=== PATIENT | male | born 1940 | race Caucasian/White ===

== ENCOUNTER 2017-12-13 09:37 | Emergency (ER) | payer OTHER, BC ==
[~2017-12-13] VITALS: Ht 172.7 cm; Wt 73.5 kg
[2017-12-13 09:43] VITALS: BP 105/43
--- NOTE | 2017-12-13 09:45 | NUR ---
PATIENT ALEXI FROM [facility] FOR EVALUATION OF PAIN TO DIALYSIS SHUNT SITE; PT DID NOT RECEIVE DIALYSIS TODAY D/T PT C/O PAIN AND ERYTHEMA AROUND THE SITE. HX: DIALYSIS M/W/F; ESRD, DEMENTIA, BPH, HTN, CVA, ANEMIA . AAOX2, UNABLE TO AMBULATE, RIGHT SIDE SEVERE WEAKNESS NOTED, WHEELCHAIR MCCOY; LUNGS CLEAR BL; HR EVEN AND REGULAR; PT DENIES ANY FEVER, CP, SOB, OR COUGH AT THIS TIME; ENIES N/V/D; SKIN IS PINK/WARM/DRY; PATIENT STATES PAIN OF 8/10 AT THIS TIME; VSS; PATIENT POSITIONED FOR COMFORT; HOB ELEVATED; BEDRAILS UP X2; BED DOWN. ER MD MADE AWARE OF PT STATUS.
[2017-12-13] MEDS ORDERED: CITA20TA15 PO (09:53)
[2017-12-13] MEDS ORDERED: PRO5 PO (09:53)
[2017-12-13] MEDS ORDERED: ASPI81CT89 PO (09:53)
[2017-12-13] MEDS ORDERED: PANT40EC PO (09:53)
[2017-12-13] MEDS ORDERED: [UNRECOGNIZED DRUG - CODE] PO (09:53)
[2017-12-13] MEDS ORDERED: KEP500 PO (09:53)
[2017-12-13] MEDS ORDERED: CARB1TAB37 PO (09:53)
[2017-12-13] MEDS ORDERED: ATOR10TA PO (09:53)
[2017-12-13] MEDS ORDERED: FERR325E14 PO (09:53)
[2017-12-13] MEDS ORDERED: OLAN2.5T1 PO (09:53)
[2017-12-13] MEDS ORDERED: MIRT15TA PO (09:53)
[2017-12-13] MEDS ORDERED: FINA5TAB1 PO (09:53)
--- NOTE | 2017-12-13 10:17 | NUR ---
PT EVALUATED BY ED MD AT BEDSIDE.
[2017-12-13] MEDS: DEXAMETHASONE 10 MG/ML VIAL IM ONE (10:45)
[2017-12-13] MEDS: ONDANSETRON 4 MG ODT PO ONE (10:45)
[2017-12-13] MEDS: hydrOXYzine HCL 25 MG TAB PO ONE (10:45)
--- NOTE | 2017-12-13 15:00 | NUR ---
TRANSPORT FOR PT TO SNF HAS ARRIVED
[2017-12-13 15:15] VITALS: BP 102/56
--- NOTE | 2017-12-13 15:15 | NUR ---
Patient discharged with v/s stable. Written and verbal after care instructions given and explained. Patient alert, oriented and verbalized understanding of instructions. Ambulance Transport with to detention. All questions addressed prior to discharge. ID band removed. Patient advised to follow up with PMD. Rx of ATARAX AND PREDNISONE given. Patient educated on indication of medication including possible reaction and side effects. Opportunity to ask questions provided and answered.
== END 2017-12-13 15:15 ==
LOC: MED 09:37
DX: L25.9 Unspecified contact dermatitis, unspecified cause (principal); F03.90 Unspecified dementia, unspecified severity, without behavioral disturbance, psychotic disturbance, mood disturbance, and anxiety; K21.9 Gastro-esophageal reflux disease without esophagitis; I10 Essential (primary) hypertension; Z79.899 Other long term (current) drug therapy
CPT/HCPCS: 96372; 99283; J1100; S0119

== ENCOUNTER 2019-08-14 14:01 | Emergency (ER) | payer OTHER, BC ==
[~2019-08-14] VITALS: Ht 177.8 cm; Wt 75.7 kg
[~2019-08-14 14:01] MED LIST: ASPI-1718 PO; ATOR10TA PO; CARB1TAB37 PO; CITA20TA15 PO; FERR325E14 PO; FINA5TAB1 PO; KEP500 PO; MIRT15TA PO; OLAN2.5T1 PO; PANT40EC PO; PRO5 PO; [UNRECOGNIZED DRUG - CODE] PO
--- NOTE | 2019-08-14 14:01 | NUR ---
PT ALEXI ALS AND PLACED IN BED 4.
--- NOTE | 2019-08-14 14:06 | NUR ---
Patient being evaluated by physician at bedside.
[2019-08-14 14:13] VITALS: BP 124/70
--- NOTE | 2019-08-14 14:24 | NUR ---
ALEXI REYESS. PER EMS, PT WAS HYPOTENSIVE DURING DIALYSIS- 72/42. DIALYSIS CENTER GAVE 1 L FLUIDS. PT CURRENTLY 124/70. BS 109 IN FIELD. 12 LEAD IN FIELD SHOWS NO ABNORMAL FINDINGS. PT IS ALERT TO SELF (PTS BASELINE). SITTING UPRIGHT IN BED, AWAKE. VSS. ON ROOM AIR. BED IS DOWN, LOCKED, BED RAIL X 2. PMH- SEE MED LIST
--- NOTE | 2019-08-14 14:44 | NUR ---
KEYLA AT BEDSIDE FOR EKG
--- NOTE | 2019-08-14 15:25 | NUR ---
PT RESTING IN BED. VSS.
[2019-08-14 15:38] LABS: BASOPHILS # (AUTO) 0.1 K/uL (0.00-0.22); BASOPHILS % (AUTO) 0.6 % (0.0-2.0); EOSINOPHILS # (AUTO) 0.2 K/uL (0-0.4); EOSINOPHILS % (AUTO) 2.1 % (0.0-4.0); HEMATOCRIT 36.7 % (36-52); HEMOGLOBIN 11.8 g/dL (12.0-18.0); LYMPHOCYTES # (AUTO) 0.8 K/uL (2.0-11.5); MEAN CORPUSCULAR HEMOGLOBIN 32 pg (27-31); MEAN CORPUSCULAR HGB CONC 32 g/dL (33-37); MEAN CORPUSCULAR VOLUME 98.5 fL (80-94); MONOCYTES # (AUTO) 0.6 K/uL (0.8-1.0); MONOCYTES % (AUTO) 6.8 % (1.7-9.3); NEUTROPHILS # (AUTO) 6.6 K/uL (1.8-7.7); NEUTROPHILS % (AUTO) 80.5 % (42.2-75.2); PLATELET COUNT (AUTO) 242 K/uL (140-450); RED BLOOD CELL COUNT(AUTO) 3.72 MIL/uL (4.20-6.10); RED CELL DISTRIBUTION WIDTH 15.8 % (11.6-13.7); WHITE BLOOD COUNT (AUTO) 8.2 K/uL (4.8-10.8)
[2019-08-14 15:52] LABS: ANION GAP 14.8 (8-16); CARBON DIOXIDE 23.4 mmol/L (21-32); CHLORIDE 104 mmol/L (98-107); GLUCOSE 127 mg/dL (74-106); POTASSIUM 5.2 mmol/L (3.5-5.1); SODIUM SERUM 137 mmol/L (136-145)
--- NOTE | 2019-08-14 15:53 | NUR ---
BUN 66 CR 5.[address] NEWMAN
[2019-08-14 15:55] LABS: CREATININE 5.6 mg/dL (0.7-1.3); UREA NITROGEN, BLOOD 66 mg/dL (7-18)
--- NOTE | 2019-08-14 16:28 | NUR ---
PT SITTING UPRIGHT IN BED EATING
--- NOTE | 2019-08-14 16:44 | NUR ---
[facility] IS 30-40 MIN FOR TRANSPORT TEAM
--- NOTE | 2019-08-14 17:21 | NUR ---
PT HAS FINISHED EATING. RESTING IN BED AND POSTIONED FOR COMFORT.
--- NOTE | 2019-08-14 17:53 | NUR ---
CALLED TRANSPORT TEAM AND CAN NOT GET A HOLD OF THEM. NO ARRIVAL AT THIS TIME
--- NOTE | 2019-08-14 17:55 | NUR ---
CALLED [facility] (POWER OF NEIGHBORHOOD CONSERVATION OFFICER), FOR AN UPDATE REGARDING PTS TRANSPORT STATUS. NO ANSWER AND MAILBOX IS FULL, NO MESSAGE LEFT
[2019-08-14 18:20] VITALS: BP 115/82
--- NOTE | 2019-08-14 18:20 | NUR ---
Patient discharged with v/s stable. Written and verbal after care instructions given and explained. Patient verbalized understanding. Wheel Chair Assisted by transport team. All questions addressed prior to discharge. Advised to follow up with PMD.
== END 2019-08-14 18:20 | disposition home or self-care (01) ==
LOC: MED 14:01
DX: I95.9 Hypotension, unspecified (principal); R55 Syncope and collapse; I12.0 Hypertensive chronic kidney disease with stage 5 chronic kidney disease or end stage renal disease; N18.6 End stage renal disease; F03.90 Unspecified dementia, unspecified severity, without behavioral disturbance, psychotic disturbance, mood disturbance, and anxiety; K21.9 Gastro-esophageal reflux disease without esophagitis; Z79.82 Long term (current) use of aspirin; Z79.899 Other long term (current) drug therapy; Z99.2 Dependence on renal dialysis
CPT/HCPCS: 36415; 80048; 84484; 85025; 93005; 99284

== ENCOUNTER 2022-11-29 09:12 | Inpatient (IN) | payer OTHER, BC ==
[~2022-11-29] VITALS: Ht 172.7 cm; Wt 54.4 kg
[~2022-11-29 09:12] MED LIST changes: -ASPI-1718 PO; +ASPI-1822 PO; +DEXA6TAB1 PO; +DONE5TAB6 PO; +MIRT-91 PO; -MIRT15TA PO; +PANT40EC56 PO; +SEVE800T6 PO; +TAMS0.4C96 PO; +VITA1TAB44 PO; +VITC500 PO; +ZINC220C29 PO
[2022-11-29 09:17] VITALS: BP 144/86
--- NOTE | 2022-11-29 09:31 | NUR ---
COVID SWABBED AT THIS TIME
--- NOTE | 2022-11-29 09:33 | NUR ---
RECIEVED REPORT FROM TONI ([facility]) [phone] COVID VACC: PFIZER MENTAL STATUS: HX DEMENTIA, CONFUSED BASELINE PMH: DEMENTIA, STROKE RIGHT SIDED DEFICIT, HTN, RENAL DISEASE, HLD
--- NOTE | 2022-11-29 09:41 | NUR ---
82 y/o male biba from [facility], pt had syncopal episode during dialysis and ALOC, pt did not finish dialysis, 65L output, 1L fluids given at dialysis center. 80% RA at dialysis center. per nurse at facility, pt normal baseline is alert and sometimes verbal, but sometimes speech is incomprehensive. pt currently at baseline as described by caregiver. pt on 10L NRB with saturation 100%. right sided chest port for dialysis. pmh: stroke right sided deficit, renal disease (tues, thurs, sat), dementia, htn, hld nka med: see list
--- NOTE | 2022-11-29 09:50 | NUR ---
influenza swabbed at this time
--- NOTE | 2022-11-29 10:04 | NUR ---
X-Ray at bedside.
[2022-11-29 10:43] LABS: BASOPHILS # (AUTO) 0.1 K/uL (0.00-0.22); BASOPHILS % (AUTO) 0.9 % (0.0-2.0); EOSINOPHILS # (AUTO) 0.2 K/uL (0-0.4); EOSINOPHILS % (AUTO) 2.1 % (0.0-4.0); HEMATOCRIT 30.2 % (36-52); HEMOGLOBIN 10.5 g/dL (12.0-18.0); LYMPHOCYTES # (AUTO) 0.8 K/uL (2.0-11.5); LYMPHOCYTES % (AUTO) 10.5 % (20.5-51.1); MEAN CORPUSCULAR HEMOGLOBIN 34 pg (27-31); MEAN CORPUSCULAR HGB CONC 35 g/dL (33-37); MEAN CORPUSCULAR VOLUME 95.8 fL (80-94); MONOCYTES # (AUTO) 0.4 K/uL (0.8-1.0); MONOCYTES % (AUTO) 5.5 % (1.7-9.3); NEUTROPHILS # (AUTO) 6.3 K/uL (1.8-7.7); PLATELET COUNT (AUTO) 199 K/uL (140-450); RED BLOOD CELL COUNT(AUTO) 3.15 MIL/uL (4.20-6.10); RED CELL DISTRIBUTION WIDTH 13.7 % (11.6-13.7); WHITE BLOOD COUNT (AUTO) 7.8 K/uL (4.8-10.8)
[2022-11-29 10:58] LABS: ALBUMIN 3.3 g/dL (3.4-5.0); ANION GAP 12.4 (8-16); ASPARTATE AMINOTRANSFERASE 11 U/L (15-37); CARBON DIOXIDE 27.3 mmol/L (21-32); CHLORIDE 99 mmol/L (98-107); GLUCOSE 136 mg/dL (74-106); POTASSIUM 4.7 mmol/L (3.5-5.1); SODIUM SERUM 134 mmol/L (136-145); TOTAL BILIRUBIN 0.2 mg/dL (0.0-1.0); UREA NITROGEN, BLOOD 39 mg/dL (7-18)
[2022-11-29 11:00] LABS: CREATININE 4.8 mg/dL (0.6-1.3)
[2022-11-29 11:03] LABS: PROTHROMBIN TIME 11.1 secs (10.8-13.4)
[2022-11-29] MEDS ORDERED: PRO5 PO (12:24)
[2022-11-29] MEDS ORDERED: METO25TE2 PO (12:24)
[2022-11-29] MEDS ORDERED: ACETAMINOPHEN 325 MG TAB PO PRN (13:25)
[2022-11-29] MEDS ORDERED: HYDROcodone/APAP 7.5/325 MG 1 TAB PO PRN (13:25)
[2022-11-29] MEDS ORDERED: ONDANSETRON 4 MG/2 ML VIAL IVP PRN (13:25)
--- NOTE | 2022-11-29 13:26 | NUR ---
Patient will be admitted to care of [facility]. Admitted to Telemetry. Will go to room 113. Belongings list completed. Report to Huong KEARNEY.
[2022-11-29] MEDS ORDERED: MECLIZINE 25 MG TAB PO PRN (13:35)
--- NOTE | 2022-11-29 13:40 | NUR ---
Pt report given to Huong KEARNEY. Transfer of care at this time.
[2022-11-29 16:00] VITALS: BP 152/94
--- NOTE | 2022-11-29 16:21 | NUR ---
PATIENT HAS BEEN SCREENED AND CATEGORIZED MODERATE NUTRITION RISK. PATIENT WILL BE SEEN WITHIN 3-5 DAYS OF ADMISSION. REVIEWED BY ROD BRADLEY RD
[2022-11-29 17:41] LABS: PROTHROMBIN TIME 10.4 secs (10.8-13.4)
[2022-11-29 17:53] LABS: CHOL/HDL RATIO 1.5 (1-4.5); FREE T4 (FREE THYROXINE) 1.16 ng/dL (0.76-1.46); THYROID STIMULATING HORMONE 2.38 uIU/mL (0.34-3.74)
[2022-11-29] MEDS: SEVELAMER CARBONATE 800 MG TAB PO SCH (18:19)
--- NOTE | 2022-11-29 18:40 | NUR ---
PATIENT ADMITTED FROM ER AT 1500. PT IS A&O X1, LIVES IN [facility]. SPOKE WITH EMELY FROM FACILITY ([phone]) - STATES PT HAS POLST AND IS DNR SO REQUESTED TO BE SENT TOMORROW, PT REMAINS FULL CODE. VSS, SKIN INTACT BESIDES SMALL SCABBING SKIN TEARS ON EXTREMITIES. PT HAD LARGE BM AND SMALL URINE VOID. MRSA SENT AND AWAITING VOID FOR URINE SAMPLE. THERAPY SAW PT AT BEDSIDE BUT JUST ROM. CALL GARCIA IS WITHIN REACH, FALL PRECAUTIONS INITIATED. ENDORSING CARE TO NEXT SHIFT RN.
--- NOTE | 2022-11-29 19:05 | NUR ---
RECEIVED PATIENT LYING ON THE BED, AWAKE, ALERT, ORIENTED TO PERSON ONLY. PATIENT HAS RIGHT UPPER CHEST PERMACATH. IV SITE ON LEFT FOREARM, G20, SALINE LOCK. SEIZURE PRECAUTIONS IN PLACE, CALL LIGHT WITHIN REACH, BED IN LOW AND LOCKED POSITION.
[2022-11-29 20:00] VITALS: BP 141/95
[2022-11-29] MEDS ORDERED: DOCUSATE SODIUM 250 MG GELCAP PO SCH (21:00)
[2022-11-29] MEDS: ATORVASTATIN 20 MG TAB PO SCH (21:07)
[2022-11-29] MEDS: TAMSULOSIN 0.4 MG CAP PO SCH (21:08)
[2022-11-29] MEDS: DOCUSATE SODIUM 100 MG GELCAP PO SCH (21:08)
[2022-11-29] MEDS: FERROUS SULFATE 325 MG TABEC PO SCH (21:08)
[2022-11-29] MEDS: OLANZapine 2.5 MG TAB PO SCH (21:09)
[2022-11-29] MEDS: MIRTAZAPINE 15 MG TAB PO SCH (21:09)
--- NOTE | 2022-11-29 21:15 | NUR ---
SCHEDULED MEDICATIONS GIVEN ORDERED.
--- NOTE | 2022-11-29 22:50 | NUR ---
BEDSIDE CARE DONE, PATIENT HAS LARGE SOFT BM. SKIN CHECK DONE, PATIENT HAS SCABS ON BILATERAL LOWER EXTREMITIES. WILL CONTINUE TO MONITOR THE PATIENT.
[2022-11-30] VITALS: BP 152/94
--- NOTE | 2022-11-30 03:00 | NUR ---
URINE COLLECTED FOR URINE CULTURE, SENT TO LAB.
[2022-11-30 04:00] VITALS: BP 105/81
[2022-11-30] MEDS: PANTOPRAZOLE 40 MG TABEC PO SCH (05:33)
[2022-11-30 07:10] LABS: BASOPHILS # (AUTO) 0.1 K/uL (0.00-0.22); BASOPHILS % (AUTO) 1.8 % (0.0-2.0); EOSINOPHILS # (AUTO) 0.2 K/uL (0-0.4); EOSINOPHILS % (AUTO) 2.9 % (0.0-4.0); HEMATOCRIT 32.9 % (36-52); HEMOGLOBIN 11.1 g/dL (12.0-18.0); LYMPHOCYTES # (AUTO) 0.8 K/uL (2.0-11.5); LYMPHOCYTES % (AUTO) 15.6 % (20.5-51.1); MEAN CORPUSCULAR HEMOGLOBIN 33 pg (27-31); MEAN CORPUSCULAR HGB CONC 34 g/dL (33-37); MEAN CORPUSCULAR VOLUME 98.1 fL (80-94); MONOCYTES # (AUTO) 0.5 K/uL (0.8-1.0); MONOCYTES % (AUTO) 9.3 % (1.7-9.3); NEUTROPHILS # (AUTO) 3.8 K/uL (1.8-7.7); NEUTROPHILS % (AUTO) 70.4 % (42.2-75.2); PLATELET COUNT (AUTO) 213 K/uL (140-450); RED BLOOD CELL COUNT(AUTO) 3.35 MIL/uL (4.20-6.10); RED CELL DISTRIBUTION WIDTH 13.7 % (11.6-13.7); WHITE BLOOD COUNT (AUTO) 5.4 K/uL (4.8-10.8)
--- NOTE | 2022-11-30 07:10 | NUR ---
ENDORSED PATIENT TO NURSE CHESTER FOR CONTINUITY OF CARE. NEEDS MET THROUGHOUT THE SHIFT. PATIENT IN STABLE CONDITION.
[2022-11-30 07:20] LABS: ANION GAP 13.4 (8-16); CARBON DIOXIDE 27.7 mmol/L (21-32); CHLORIDE 98 mmol/L (98-107); GLUCOSE 97 mg/dL (74-106); POTASSIUM 5.1 mmol/L (3.5-5.1); SODIUM SERUM 134 mmol/L (136-145); UREA NITROGEN, BLOOD 43 mg/dL (7-18)
[2022-11-30 07:36] LABS: MAGNESIUM 2.1 mg/dL (1.8-2.4); PHOSPHORUS 4.1 mg/dL (2.5-4.9)
[2022-11-30 08:00] VITALS: BP 135/95
[2022-11-30 08:23] LABS: CREATININE 5.9 mg/dL (0.6-1.3)
[2022-11-30] MEDS ORDERED: PANTOPRAZOLE 40 MG INJ VIAL IVP SCH (09:00)
[2022-11-30] MEDS: DOCUSATE SODIUM 100 MG GELCAP PO SCH ×2 (09:13→21:18)
[2022-11-30] MEDS: FINASTERIDE 5 MG TAB PO SCH (09:14)
[2022-11-30] MEDS: CITALOPRAM 20 MG TAB PO SCH (09:14)
[2022-11-30] MEDS: ASPIRIN 81 MG TAB.CHEW PO SCH (09:15)
[2022-11-30] MEDS: SEVELAMER CARBONATE 800 MG TAB PO SCH ×3 (09:15→17:20)
[2022-11-30] MEDS: DONEPEZIL 10 MG TAB PO SCH (09:15)
[2022-11-30] MEDS: METOPROLOL SUCCINATE 50 MG TABER PO SCH (09:16)
[2022-11-30] MEDS: VIT-B COMP/VIT-C/FOLIC ACID 1 TAB PO SCH (09:16)
[2022-11-30] MEDS: FERROUS SULFATE 325 MG TABEC PO SCH ×2 (09:17→21:19)
[2022-11-30] MEDS: TAMSULOSIN 0.4 MG CAP PO SCH ×2 (09:17→21:20)
[2022-11-30 12:00] VITALS: BP 151/97
[2022-11-30] MEDS ORDERED: bisacodyL 10 MG SUPP RC SCH (14:00)
--- NOTE | 2022-11-30 15:21 | NUR ---
VSS, PT BP ELEVATED TO 151 SYSTOLIC AT NOON, BUT HAS ORDER FOR HD TOMORROW. WILL CONTINUE TO MONITOR. NO CALL BACK FROM DIALYSIS COUNTERINTELLIGENCE AGENT SHANELL DALY. FALL PRECAUTIONS IN PLACE AND Q2 TURNS PERFORMED.
[2022-11-30 16:00] VITALS: BP 188/99
--- NOTE | 2022-11-30 16:16 | NUR ---
DC PLANNING PER NOTES, PT A&OX1 THEREFORE, SHANELLE GATHERED COLLAT INFO FROM TONI, [employer] ADMIN. [facility]ONI REPORTS PATIENT IS RESIDENT OF [facility] FOR THE LAST 8-9 YRS. TONI IDENTIFIED BRENDAN LEDESMA, EX PARTNER [phone] AND TONI NAVARRETE,ADMIN,[phone] PTS EMERGENCY CONTACTS. TONI REPORTS SHE AND/OR BRENDAN ARE MDM. PT IS REPORTED TO HAVE FAMILY IN [place] HOWEVER, ARE NOT ACTIVE IN PTS CARE. TONI REPORTS PT IS COMPLIANT IN CARE AND DOES NOT DISPLAY ANY BX'S AT THE HOME. PT IS REPORTED TO UTILIZE WC AT FACILITY AND REQUIRES ASSISTANCE WITH ADL'S, THAT STAFF AIDS WITH. PT RECEIVES DIALYSIS FROM [facility] AT 8AM ON AT 8AM. PTS FOLLOWING NEPH; DR MINGO JUAREZ. TONI REPORTS DC PLAN IS FOR PT TO RETURN TO [facility] WHEN MEDICALLY STABLE. TONI REPORTS IF HH IS NEEDED, HH IS ALLOWED TO PROVIDE SERVICES IN THE HOME. Addendum: 11/30/22 at 1618 by Maddi LYLE Amended: Links added.
[2022-11-30] MEDS: hydrALAZINE 20 MG/ML VIAL IVP PRN ×2 (17:20→18:25)
--- NOTE | 2022-11-30 18:23 | NUR ---
BP 188/99 - MD ORDERED PRN HYDRALAZINE FOR SBP>160. GIVEN TO PT AND BP IS NOW 121/80.
--- NOTE | 2022-11-30 18:59 | NUR ---
CARE ENDORSED TO NURSE FELIX
--- NOTE | 2022-11-30 19:10 | NUR ---
RECEIVED PT FROM DAY SHIFT NURSE. PT IS ON BED AWAKE WITH SLIGHT TO MODERATE CONFUSE, ABLE TO MAKE NEEDS KNOWN. PT IS WITH RIGHT BODY WEAKNESS. NO KNOWN ALLERGY AND FULL CODE. PT IS WITH ESRD, HAVING SCHEDULE FOR DIALYSIS 3X WEEKLY ([facility]). IV SITE IS ON LEFT FOREARM 20G. ECHO PERFORMED PER DAY NURSE.
[2022-11-30 20:00] VITALS: BP 149/67
[2022-11-30] MEDS: ATORVASTATIN 20 MG TAB PO SCH (21:22)
[2022-11-30] MEDS: MIRTAZAPINE 15 MG TAB PO SCH (21:22)
[2022-11-30] MEDS: OLANZapine 2.5 MG TAB PO SCH (21:23)
--- NOTE | 2022-11-30 22:45 | NUR ---
TALKED TO DIALYSIS NURSE. DIALYSIS WILL BE DONE IN THE MORNING 12/01/21. PT IS WITH RIGHT [place] CATH. INFORMED TO PATIENT, PT AWARE.
[2022-12-01] VITALS: BP 126/98
--- NOTE | 2022-12-01 00:15 | NUR ---
CHECKED VITAL SIGNS, PT COOPERATIVE. O2 SAT DROP TO 88%. APPLY O2 ASSISTANCE ADMINISTERED AT 2 LPM, O2 SAT INCREASED AND STABLE AT 100%.
--- NOTE | 2022-12-01 02:00 | NUR ---
PT SLEEPING ON AND OFF. BILATERAL THIGHS AND RIGHT EXTREMITY CONTRACTURE.
[2022-12-01 04:00] VITALS: BP_SYST 126; BP_SYST 134; BP_DIAS 92; BP_DIAS 98
--- NOTE | 2022-12-01 04:30 | NUR ---
PERSONAL HYGIENE RENDERED, PT HAD A LARGE BM.
[2022-12-01 07:02] LABS: BASOPHILS # (AUTO) 0.1 K/uL (0.00-0.22); BASOPHILS % (AUTO) 0.9 % (0.0-2.0); EOSINOPHILS # (AUTO) 0.1 K/uL (0-0.4); EOSINOPHILS % (AUTO) 1.6 % (0.0-4.0); HEMATOCRIT 33.8 % (36-52); HEMOGLOBIN 11.4 g/dL (12.0-18.0); LYMPHOCYTES # (AUTO) 0.7 K/uL (2.0-11.5); LYMPHOCYTES % (AUTO) 7.6 % (20.5-51.1); MEAN CORPUSCULAR HEMOGLOBIN 33 pg (27-31); MEAN CORPUSCULAR HGB CONC 34 g/dL (33-37); MEAN CORPUSCULAR VOLUME 98.1 fL (80-94); MONOCYTES # (AUTO) 0.8 K/uL (0.8-1.0); MONOCYTES % (AUTO) 8.9 % (1.7-9.3); NEUTROPHILS # (AUTO) 7.3 K/uL (1.8-7.7); PLATELET COUNT (AUTO) 239 K/uL (140-450); RED BLOOD CELL COUNT(AUTO) 3.45 MIL/uL (4.20-6.10); RED CELL DISTRIBUTION WIDTH 13.7 % (11.6-13.7)
[2022-12-01] MEDS: PANTOPRAZOLE 40 MG TABEC PO SCH (07:10)
[2022-12-01 07:15] LABS: ANION GAP 13.2 (8-16); CARBON DIOXIDE 25.7 mmol/L (21-32); CHLORIDE 98 mmol/L (98-107); GLUCOSE 89 mg/dL (74-106); POTASSIUM 5.9 mmol/L (3.5-5.1); SODIUM SERUM 131 mmol/L (136-145); UREA NITROGEN, BLOOD 53 mg/dL (7-18)
--- NOTE | 2022-12-01 07:20 | NUR ---
PT IS ON STABLE CONDITION. NO SOB OR DISTRESS. ALL SAFETY MEASURES ARE IN PLACE. ENDORSED TO DAY SHIFT NURSE ADZE FOR CONTINUITY OF CARE.
[2022-12-01 07:23] LABS: MAGNESIUM 2.1 mg/dL (1.8-2.4); PHOSPHORUS 3.9 mg/dL (2.5-4.9)
--- NOTE | 2022-12-01 07:30 | NUR ---
PT IS ON STABLE CONDITION. MORNING PILL PROTONIX TAKEN WITH NO PROBLEM. ALL SAFETY MEASURES ARE IN PLACE. ENDORSED TO DAY SHIFT NURSE GREGORIO FOR CONTINUITY OF CARE.
[2022-12-01 07:36] LABS: CREATININE 6.7 mg/dL (0.6-1.3)
[2022-12-01 08:00] VITALS: BP 130/67
[2022-12-01] MEDS ORDERED: SODIUM ZIRCONIUM CYCLOSILICATE 10 GM POWD.PACK PO SCH (08:10)
[2022-12-01] MEDS: ASPIRIN 81 MG TAB.CHEW PO SCH (09:00)
[2022-12-01] MEDS: METOPROLOL SUCCINATE 50 MG TABER PO SCH (09:00)
[2022-12-01] MEDS: CITALOPRAM 20 MG TAB PO SCH (09:14)
[2022-12-01] MEDS: DOCUSATE SODIUM 100 MG GELCAP PO SCH ×2 (09:14→21:08)
[2022-12-01] MEDS: SEVELAMER CARBONATE 800 MG TAB PO SCH ×3 (09:14→17:00)
[2022-12-01] MEDS: FINASTERIDE 5 MG TAB PO SCH (09:15)
[2022-12-01] MEDS: FERROUS SULFATE 325 MG TABEC PO SCH ×2 (09:15→21:06)
[2022-12-01] MEDS: VIT-B COMP/VIT-C/FOLIC ACID 1 TAB PO SCH (09:15)
[2022-12-01] MEDS: TAMSULOSIN 0.4 MG CAP PO SCH ×2 (09:15→21:07)
[2022-12-01] MEDS: DONEPEZIL 10 MG TAB PO SCH (09:18)
--- NOTE | 2022-12-01 10:56 | NUR ---
P.T. NOTES HOLD P.T. TX DUE TO DIALYSIS.
[2022-12-01 12:00] VITALS: BP 120/63
[2022-12-01] MEDS ORDERED: ALBUMIN HUMAN 25% 100 ML IV ONE (12:08)
[2022-12-01] MEDS ORDERED: ALBUMIN HUMAN 25% 100 ML IV SCH (13:00)
[2022-12-01 16:00] VITALS: BP 150/68
--- NOTE | 2022-12-01 19:12 | NUR ---
patient remains stable throughout shift. had hemodialysis today. BP was dropping while on dialysis. Albumin was given by dialysis nurse, BP went back to normal. pt. tolerated dialysis well. all needs anticipated and met. will continue to monitor.
--- NOTE | 2022-12-01 19:30 | NUR ---
RECEIVED REPORT FROM DAY SHIFT RN FOR CONTINUITY OF CARE. PT IS AWAKE NOT IN ANY RESPIRATORY DISTRESS. PT IS ON NC 4L SATING 98%. PT HAS IV ON LEFT FOREARM 20 GAUGE SALINE LOCK. POC DISCUSSED. SAFETY PRECAUTIONS TAKEN. WILL CONTINUE TO MONITOR THE PT.
[2022-12-01 20:00] VITALS: BP 131/75
[2022-12-01] MEDS: ATORVASTATIN 20 MG TAB PO SCH (21:06)
[2022-12-01] MEDS: OLANZapine 2.5 MG TAB PO SCH (21:07)
[2022-12-01] MEDS: MIRTAZAPINE 15 MG TAB PO SCH (21:07)
--- NOTE | 2022-12-01 21:10 | NUR ---
SCHEDULE MEDICATIONS GIVEN. PT TOOK THEM WELL. NO ADVERSE REACTION NOTED. WILL CONTINUE TO MONITOR THE PT.
--- NOTE | 2022-12-02 00:16 | NUR ---
OBSERVED PT. PT IS NOT IN ANY ACUTE DISTRESS. PT IS SLEEPING COMFORTABLY IN BED. VISIBLE RISE AND CHEST FALL. SAFETY PRECAUTIONS TAKEN. WILL CONTINUE TO MONITOR THE PT.
[2022-12-02 04:00] VITALS: BP 148/85
--- NOTE | 2022-12-02 04:01 | NUR ---
PT WAS CLEANED AND CHANGED. TOLERATED IT WELL. VITAL SIGNS STABLE.
[2022-12-02] MEDS: PANTOPRAZOLE 40 MG TABEC PO SCH (05:47)
[2022-12-02 06:37] LABS: BASOPHILS % (AUTO) 1.4 % (0.0-2.0); EOSINOPHILS # (AUTO) 0.1 K/uL (0-0.4); EOSINOPHILS % (AUTO) 1.8 % (0.0-4.0); HEMATOCRIT 33.7 % (36-52); HEMOGLOBIN 11.3 g/dL (12.0-18.0); LYMPHOCYTES # (AUTO) 0.9 K/uL (2.0-11.5); LYMPHOCYTES % (AUTO) 16.8 % (20.5-51.1); MEAN CORPUSCULAR HEMOGLOBIN 33 pg (27-31); MEAN CORPUSCULAR HGB CONC 34 g/dL (33-37); MEAN CORPUSCULAR VOLUME 98.9 fL (80-94); MONOCYTES # (AUTO) 0.9 K/uL (0.8-1.0); MONOCYTES % (AUTO) 16.7 % (1.7-9.3); NEUTROPHILS # (AUTO) 3.4 K/uL (1.8-7.7); NEUTROPHILS % (AUTO) 63.3 % (42.2-75.2); PLATELET COUNT (AUTO) 209 K/uL (140-450); RED BLOOD CELL COUNT(AUTO) 3.41 MIL/uL (4.20-6.10); RED CELL DISTRIBUTION WIDTH 13.7 % (11.6-13.7); WHITE BLOOD COUNT (AUTO) 5.4 K/uL (4.8-10.8)
[2022-12-02 06:47] LABS: ANION GAP 13.2 (8-16); CARBON DIOXIDE 28.8 mmol/L (21-32); CHLORIDE 99 mmol/L (98-107); GLUCOSE 93 mg/dL (74-106); SODIUM SERUM 136 mmol/L (136-145); UREA NITROGEN, BLOOD 26 mg/dL (7-18)
[2022-12-02 06:51] LABS: CREATININE 4.8 mg/dL (0.6-1.3)
[2022-12-02 06:55] LABS: PHOSPHORUS 3.7 mg/dL (2.5-4.9)
--- NOTE | 2022-12-02 07:11 | NUR ---
ENDORSED PT TO DAY SHIFT RN FOR CONTINUITY OF CARE. PT IS STABLE.
[2022-12-02 07:14] LABS: BASOPHILS # (AUTO) 0.1 K/uL (0.00-0.22)
[2022-12-02 08:00] VITALS: BP 141/51
[2022-12-02] MEDS: CITALOPRAM 20 MG TAB PO SCH (08:59)
[2022-12-02] MEDS: METOPROLOL SUCCINATE 50 MG TABER PO SCH (08:59)
[2022-12-02] MEDS: ASPIRIN 81 MG TAB.CHEW PO SCH (08:59)
[2022-12-02] MEDS: FINASTERIDE 5 MG TAB PO SCH (08:59)
[2022-12-02] MEDS: VIT-B COMP/VIT-C/FOLIC ACID 1 TAB PO SCH (09:00)
[2022-12-02] MEDS: SEVELAMER CARBONATE 800 MG TAB PO SCH ×2 (09:00→13:00)
[2022-12-02] MEDS: DOCUSATE SODIUM 100 MG GELCAP PO SCH (09:01)
[2022-12-02] MEDS: DONEPEZIL 10 MG TAB PO SCH (09:01)
[2022-12-02] MEDS: TAMSULOSIN 0.4 MG CAP PO SCH (09:01)
[2022-12-02] MEDS: FERROUS SULFATE 325 MG TABEC PO SCH (09:01)
[2022-12-02 12:00] VITALS: BP 147/62
[2022-12-02 15:30] VITALS: BP 147/62
--- NOTE | 2022-12-02 15:39 | NUR ---
PHYSICAL THERAPY CO-SIGN The Physical Therapy Progress Notes documented by Senior Recruitment Consultant have been reviewed. Reviewed/Co-Signed by: Hortencia Howard PT Documentation Done by:ZAIDA BALES SEWING MACHINE OPERATOR Addendum: 12/02/22 at 1539 by Hortencia Howard PT Amended: Links added.
--- NOTE | 2022-12-02 17:30 | NUR ---
PATIENT DISCHARGED TO [facility]. STABLE UPON DISCHARGED.
== END 2022-12-02 17:31 | disposition home or self-care (01) | DRG 73 ==
LOC: MED 09:12 → MTU 11:48
PROC: 5A1D70Z Performance of Urinary Filtration, Intermittent, Less than 6 Hours Per Day (ICD-10-PCS; principal; 2022-12-01)
DX: G90.8 Other disorders of autonomic nervous system (principal); G93.41 Metabolic encephalopathy; N17.0 Acute kidney failure with tubular necrosis; N18.6 End stage renal disease; E87.1 Hypo-osmolality and hyponatremia; I12.0 Hypertensive chronic kidney disease with stage 5 chronic kidney disease or end stage renal disease; I95.1 Orthostatic hypotension; D63.1 Anemia in chronic kidney disease; I25.10 Atherosclerotic heart disease of native coronary artery without angina pectoris; K21.9 Gastro-esophageal reflux disease without esophagitis; E78.5 Hyperlipidemia, unspecified; G20 Parkinson's disease; F02.80 Dementia in other diseases classified elsewhere, unspecified severity, without behavioral disturbance, psychotic disturbance, mood disturbance, and anxiety; N40.0 Benign prostatic hyperplasia without lower urinary tract symptoms; K59.00 Constipation, unspecified; E88.09 Other disorders of plasma-protein metabolism, not elsewhere classified; Z20.822 Contact with and (suspected) exposure to COVID-19; F32.9 Major depressive disorder, single episode, unspecified; E83.51 Hypocalcemia; G40.909 Epilepsy, unspecified, not intractable, without status epilepticus; Z79.82 Long term (current) use of aspirin; Z79.899 Other long term (current) drug therapy; Z99.2 Dependence on renal dialysis
CPT/HCPCS: 36415; 36600; 70450; 71045; 74150; 76770; 80048; 80053; 82140; 82150; 82803; 83036; 83605; 83690; 83735; 83880; 84100; 84439; 84443; 84484; 85025; 85610; 85730; 87040; 87081; 87086; 93005; 93880; 97110; 97163-GP; 97530; 99285; J0360; J1644; P9046; Q0092

== ENCOUNTER 2023-01-26 12:55 | Inpatient (IN) | payer OTHER, BC ==
[~2023-01-26] VITALS: Ht 177.8 cm; Wt 72.6 kg
[~2023-01-26 12:55] MED LIST changes: -CARB1TAB37 PO; -DEXA6TAB1 PO; -KEP500 PO; +METO25TE2 PO; -PANT40EC56 PO; -VITC500 PO; -ZINC220C29 PO
--- NOTE | 2023-01-26 13:11 | NUR ---
Pt taken to CT via rayo
--- NOTE | 2023-01-26 13:22 | NUR ---
Pt returned from CT
[2023-01-26 13:54] VITALS: BP 160/88
[2023-01-26 14:05] LABS: BILIRUBIN,URINE NEGATIVE (NEGATIVE); BLOOD, URINE 1+ (NEGATIVE); LEUKOCYTE ESTERASE ,URINE 3+ (NEGATIVE); NITRITE, URINE NEGATIVE (NEGATIVE); UGLUCOSE TRACE (NEGATIVE)
[2023-01-26 14:06] LABS: BASOPHILS % (AUTO) 0.3 % (0.0-2.0); EOSINOPHILS # (AUTO) 0.1 K/uL (0-0.4); EOSINOPHILS % (AUTO) 4.1 % (0.0-4.0); HEMATOCRIT 28.3 % (36-52); HEMOGLOBIN 9.5 g/dL (12.0-18.0); LYMPHOCYTES # (AUTO) 0.6 K/uL (2.0-11.5); LYMPHOCYTES % (AUTO) 16.4 % (20.5-51.1); MEAN CORPUSCULAR HEMOGLOBIN 34 pg (27-31); MEAN CORPUSCULAR HGB CONC 34 g/dL (33-37); MEAN CORPUSCULAR VOLUME 99.2 fL (80-94); MONOCYTES # (AUTO) 0.5 K/uL (0.8-1.0); NEUTROPHILS # (AUTO) 2.3 K/uL (1.8-7.7); NEUTROPHILS % (AUTO) 64.2 % (42.2-75.2); PLATELET COUNT (AUTO) 202 K/uL (140-450); RED BLOOD CELL COUNT(AUTO) 2.85 MIL/uL (4.20-6.10); WHITE BLOOD COUNT (AUTO) 3.5 K/uL (4.8-10.8)
[2023-01-26 14:18] LABS: APPEARANCE,URINE HAZY (CLEAR); COLOR,URINE STRAW (YELLOW)
[2023-01-26 14:19] LABS: RBC,URINE 11-20 (MOD) /HPF (0-5); WBC,URINE TOO MANY TO COUNT /HPF (0-5)
[2023-01-26 14:38] LABS: ANION GAP 7.9 (8-16); CARBON DIOXIDE 32.1 mmol/L (21-32); CHLORIDE 97 mmol/L (98-107); CREATININE 2.3 mg/dL (0.6-1.3); GLUCOSE 65 mg/dL (74-106); SODIUM SERUM 133 mmol/L (136-145); UREA NITROGEN, BLOOD 19 mg/dL (7-18)
[2023-01-26 14:47] LABS: ALBUMIN 2.9 g/dL (3.4-5.0); ASPARTATE AMINOTRANSFERASE 28 U/L (15-37); TOTAL BILIRUBIN 0.3 mg/dL (0.0-1.0)
[2023-01-26 14:48] LABS: SALICYLATE < 2.8 mg/dL (2.8-20.0)
[2023-01-26 14:49] LABS: FREE T4 (FREE THYROXINE) 1.06 ng/dL (0.76-1.46); THYROID STIMULATING HORMONE 3.08 uIU/mL (0.34-3.74)
[2023-01-26 14:51] LABS: ACETAMINOPHEN < 0.5 ug/ml (10-30)
[2023-01-26] MEDS ORDERED: cefTRIAXone 1,000 MG VIAL ONE (15:19)
[2023-01-26] MEDS ORDERED: ONDANSETRON 4 MG/2 ML VIAL IVP PRN (16:20)
[2023-01-26] MEDS ORDERED: POTASSIUM CHLORIDE 10 MEQ TABER PO PRN (16:20)
[2023-01-26] MEDS ORDERED: MAG SULF 2000 MG/WATER PREMIX 50 ML IV PRN (16:20)
[2023-01-26] MEDS ORDERED: ACETAMINOPHEN 325 MG TAB PO PRN (16:20)
[2023-01-26] MEDS ORDERED: ZOLPIDEM 10 MG TAB PO PRN (16:20)
[2023-01-26] MEDS ORDERED: DOCUSATE SODIUM 100 MG GELCAP PO PRN (16:20)
[2023-01-26] MEDS ORDERED: LORazepam 2 MG/ML VIAL IVP PRN (16:20)
[2023-01-26] MEDS ORDERED: MORPHINE SULFATE 2 MG/ML SYR IVP PRN (16:20)
--- NOTE | 2023-01-26 17:25 | NUR ---
BS 79
--- NOTE | 2023-01-26 17:59 | NUR ---
Report given to receiving CHRISTEL. SANJANA. Pt transported via [facility] with all belongings.
[2023-01-26 18:10] VITALS: BP 126/81
--- NOTE | 2023-01-26 18:51 | NUR ---
RECEIVED PT FROM ED FOR ALOC. PT A/OX2, VSS, AFEBRILE, DENIES PAIN OR DISCOMFORT. RA. FED SANDWICH. VOIDED, ORIENTED TO ROOM AND UNIT. MRSA SWAB COMPLETED. ALL NEEDS MET, SAFETY AND COMFORT MEASURES MAINTAINED, CALL LIGHT WITHIN REACH.
--- NOTE | 2023-01-26 19:30 | NUR ---
RECEIVED REPORT FROM DAY SHIFT RN FOR CONTINUITY OF CARE. PT IS AWAKE AND ALERT. PT IS NOT IN ANY DISTRESS. BED AT THE LOWEST POSITION. HEAD OF THE BED RAISED. POC OF CARE DISCUSSED. WILL CONTINUE TO MONITOR THE PT.
[2023-01-26 20:00] VITALS: BP 137/66
[2023-01-26] MEDS: TAMSULOSIN 0.4 MG CAP PO SCH (21:11)
[2023-01-26] MEDS: ATORVASTATIN 20 MG TAB PO SCH (21:11)
[2023-01-26] MEDS: OLANZapine 2.5 MG TAB PO SCH (21:11)
[2023-01-26] MEDS: DOCUSATE SODIUM 250 MG GELCAP PO SCH (21:11)
--- NOTE | 2023-01-26 21:11 | NUR ---
SCHEDULE MEDICATIONS GIVEN. NO ADVERSE REACTION NOTED. WILL CONTINUE TO MONITOR THE PT.
[2023-01-27] VITALS: BP 130/70
--- NOTE | 2023-01-27 01:47 | NUR ---
PT WAS CLEANED AND CHANGED. TOLERATED IT WELL. WILL CONTINUE TO MONITOR.
[2023-01-27 04:00] VITALS: BP 125/70
--- NOTE | 2023-01-27 04:10 | NUR ---
PT WANTED SOME SNACKS. SNACKS PROVIDED. NO OTHER COMPLAINS. WILL CONTINUE TO MONITOR THE PT.
[2023-01-27 06:57] LABS: BASOPHILS # (AUTO) 0.1 K/uL (0.00-0.22); EOSINOPHILS # (AUTO) 0.2 K/uL (0-0.4); EOSINOPHILS % (AUTO) 4.5 % (0.0-4.0); HEMATOCRIT 28.6 % (36-52); HEMOGLOBIN 9.6 g/dL (12.0-18.0); LYMPHOCYTES # (AUTO) 0.7 K/uL (2.0-11.5); LYMPHOCYTES % (AUTO) 19.2 % (20.5-51.1); MEAN CORPUSCULAR HEMOGLOBIN 33 pg (27-31); MEAN CORPUSCULAR HGB CONC 34 g/dL (33-37); MEAN CORPUSCULAR VOLUME 99.9 fL (80-94); MONOCYTES # (AUTO) 0.5 K/uL (0.8-1.0); MONOCYTES % (AUTO) 14.2 % (1.7-9.3); NEUTROPHILS # (AUTO) 2.2 K/uL (1.8-7.7); NEUTROPHILS % (AUTO) 58.1 % (42.2-75.2); PLATELET COUNT (AUTO) 207 K/uL (140-450); RED BLOOD CELL COUNT(AUTO) 2.86 MIL/uL (4.20-6.10); RED CELL DISTRIBUTION WIDTH 14.2 % (11.6-13.7); WHITE BLOOD COUNT (AUTO) 3.7 K/uL (4.8-10.8)
[2023-01-27 07:04] LABS: ANION GAP 7.9 (8-16); CARBON DIOXIDE 31.8 mmol/L (21-32); CHLORIDE 102 mmol/L (98-107); CREATININE 3.6 mg/dL (0.6-1.3); GLUCOSE 100 mg/dL (74-106); POTASSIUM 4.7 mmol/L (3.5-5.1); SODIUM SERUM 137 mmol/L (136-145); UREA NITROGEN, BLOOD 28 mg/dL (7-18)
--- NOTE | 2023-01-27 07:10 | NUR ---
ENDORSED PT TO DAY SHIFT RN FOR CONTINUITY OF CARE. PT IS STABLE.
[2023-01-27 08:00] VITALS: BP 135/76
--- NOTE | 2023-01-27 08:55 | NUR ---
PATIENT HAS BEEN SCREENED AND CATEGORIZED MODERATE NUTRITION RISK. PATIENT WILL BE SEEN WITHIN 3-5 DAYS OF ADMISSION. /02/19 REVIEW[address] ROD BR[address] RD
--- NOTE | 2023-01-27 09:00 | NUR ---
PT. WITH LOW NAY SCALE AT MODERATE TO HIGH RISK, CONTINUE TO FOLLOW PRESSURE INJURY PREVENTION INTERVENTIONS. -POSITIONING: TURN AND REPOSITION PATIENT Q 2H OR SOONER USE PILLOWS TO KEEP BONY PROMINENCES FROM DIRECT CONTACT WITH SURFACES USE REPOSITIONING WEDGES TO PROVIDE 30-DEGREE ANGLE FOR SIDE LYING POSITIONS OFFLOADING OR FOAM DRESSING TO ALL TUBING TO PREVENT MEDICAL DEVICES RELATED PRESSURE INJURY -RE-EVALUATING AND MANAGING INCONTINENCE MONITOR SKIN CONDITION DURING POSITION CHANGE DO NOT MASSAGE REDNESS, BONY PROMINENCES FREQUENT YANELY-CARE AND PROVIDE BARRIER CREAMS PRN IF SOILING MOISTURE CONTROL BY OFFER BED BENNETT/URINAL /ABSORBENT PAD TO WICK AND HOLD MOISTURE KEEP SKIN DRY AND PROTECT FROM FRICTION -MANAGE FRICTION/SHEAR/MOBILITY KEEP HOB AT THE LOWEST LEVEL OF ELEVATION NO MORE THAN 30 DEGREE UNLESS OTHERWISE CONTRAINDICATED USE LIFT SHEET OR TRANSFER DEVICE TO MOVE PATIENT AND PREVENT LATERAL SHEER. PROTECT HEELS, ELBOWS BONY PROMINENCES WITH SKIN BERRIES OR FOAM DRESSING IF EXPOSED TO FRICTION OFFLOAD BILATERAL HEELS BY PLACING PILLOWS UNDER CALVES AT ALL TIMES, UNLESS OTHERWISE CONTRAINDICATED -PRESSURE REDISTRIBUTION SURFACE THERAPY HARDY ISOFLEX MATTRESS -NUTRITION: PLEASE FOLLOW RD RECOMMENDATIONS AND OFFER NUTRITION SUPPLEMENTS IF ORDERED. PLEASE CONTACT WOUND CARE NURSE FOR ANY QUESTION AND CHANGE OF WOUND CONDITION.
[2023-01-27] MEDS: METOPROLOL SUCCINATE 50 MG TABER PO SCH (11:23)
[2023-01-27] MEDS: ASPIRIN 81 MG TAB.CHEW PO SCH (11:24)
[2023-01-27] MEDS: VIT-B COMP/VIT-C/FOLIC ACID 1 TAB PO SCH (11:25)
[2023-01-27] MEDS: DOCUSATE SODIUM 250 MG GELCAP PO SCH ×2 (11:25→21:19)
[2023-01-27] MEDS: CITALOPRAM 20 MG TAB PO SCH (11:25)
[2023-01-27] MEDS: TAMSULOSIN 0.4 MG CAP PO SCH ×2 (11:25→21:18)
[2023-01-27] MEDS: FERROUS SULFATE 325 MG TABEC PO SCH ×2 (11:25→18:14)
[2023-01-27] MEDS: DONEPEZIL 10 MG TAB PO SCH (11:26)
[2023-01-27] MEDS: FINASTERIDE 5 MG TAB PO SCH (11:26)
[2023-01-27 12:00] VITALS: BP 133/74
--- NOTE | 2023-01-27 12:18 | NUR ---
DC PLANIN YRS OLD MALE PATIENT WAS ADMITTED FROM [facility] WITH A DX OF UTI. PATIENT HAS A HX OF ESRD DIALYSIS [facility], [facility] AND GERD. CXR NEGATIVE RAPID COVID TEST NEGATIVE. CT HEAD SHOWED NO INTRACRANIAL HEMORRHAGE . ADMINISTERED IVF , IV ABX ROCEPHIN AND CONTINUED HOME MEDS. CONSULTED WITH NEPHRO. PATIENT IS WITH [facility]. CM CALLED [facility] [phone] SPOKE WITH JONO STATED ONCE PT HAS A DC ORDER WILL ARRANGE TRANSPORT AND GOING TO THE SAME PLACE. CM PROVIDED THE HOUSE NUMBER FOR A POSSIBLE DC OVER THE WEEKEND. CM TO FOLLOW
[2023-01-27 16:00] VITALS: BP 129/68
--- NOTE | 2023-01-27 19:30 | NUR ---
RECEIVED REPORT FROM DAY SHIFT RN FOR CONTINUITY OF CARE. PT IS AWAKE AND ALERTX2. AT BASELINE. PT IS NOT IN ANY DISTRESS. BED AT THE LOWEST POSITION. HEAD OF THE BED RAISED. POC OF CARE DISCUSSED. WILL CONTINUE TO MONITOR THE PT.
[2023-01-27 20:00] VITALS: BP 184/82
[2023-01-27] MEDS: OLANZapine 2.5 MG TAB PO SCH (21:18)
[2023-01-27] MEDS: ATORVASTATIN 20 MG TAB PO SCH (21:18)
--- NOTE | 2023-01-27 21:20 | NUR ---
SCHEDULE MEDICATIONS GIVEN. NO ADVERSE REACTION NOTED. WILL CONTINUE TO MONITOR THE PT.
--- NOTE | 2023-01-28 00:15 | NUR ---
PT IS AWAKE AND RESTING IN BED. PT NOT IN ANY DISTRESS. NO COMPLAINS. ALL NEEDS MET. WILL CONTINUE TO MONITOR THE PT.
[2023-01-28 06:25] LABS: BASOPHILS # (AUTO) 0.1 K/uL (0.00-0.22); BASOPHILS % (AUTO) 2.9 % (0.0-2.0); EOSINOPHILS # (AUTO) 0.2 K/uL (0-0.4); EOSINOPHILS % (AUTO) 4.1 % (0.0-4.0); HEMATOCRIT 29.7 % (36-52); HEMOGLOBIN 9.8 g/dL (12.0-18.0); LYMPHOCYTES % (AUTO) 21.3 % (20.5-51.1); MEAN CORPUSCULAR HEMOGLOBIN 34 pg (27-31); MEAN CORPUSCULAR HGB CONC 33 g/dL (33-37); MEAN CORPUSCULAR VOLUME 101.2 fL (80-94); MONOCYTES # (AUTO) 0.5 K/uL (0.8-1.0); MONOCYTES % (AUTO) 11.5 % (1.7-9.3); NEUTROPHILS # (AUTO) 2.7 K/uL (1.8-7.7); NEUTROPHILS % (AUTO) 60.2 % (42.2-75.2); PLATELET COUNT (AUTO) 211 K/uL (140-450); RED BLOOD CELL COUNT(AUTO) 2.94 MIL/uL (4.20-6.10); RED CELL DISTRIBUTION WIDTH 14.4 % (11.6-13.7); WHITE BLOOD COUNT (AUTO) 4.5 K/uL (4.8-10.8)
[2023-01-28 06:28] LABS: ANION GAP 9.6 (8-16); CARBON DIOXIDE 30.5 mmol/L (21-32); CHLORIDE 101 mmol/L (98-107); GLUCOSE 90 mg/dL (74-106); POTASSIUM 5.1 mmol/L (3.5-5.1); SODIUM SERUM 136 mmol/L (136-145); UREA NITROGEN, BLOOD 46 mg/dL (7-18)
[2023-01-28 06:53] LABS: CREATININE 4.9 mg/dL (0.6-1.3)
--- NOTE | 2023-01-28 07:22 | NUR ---
ENDORSED PT TO DAY SHIFT RN FOR CONTINUITY OF CARE. PT IS STABLE.
--- NOTE | 2023-01-28 07:26 | NUR ---
RECEIVED PT FROM INDUSTRIAL LOCOMOTIVE OPERATOR NURSE FOR CONTINUITY OF CARE. PT IS SLEEPING IN BED. VISIBLE CHEST RISE/FALL. RESPIRATIONS EVEN AND UNLABORED ON RA. NO DISTRESS NOTED. CALL LIGHT WITHIN REACH. ALL SAFETY PRECAUTIONS IN PLACE.
[2023-01-28 08:00] VITALS: BP 103/73
[2023-01-28] MEDS: FINASTERIDE 5 MG TAB PO SCH (08:44)
[2023-01-28] MEDS: DOCUSATE SODIUM 250 MG GELCAP PO SCH ×2 (08:44→20:13)
[2023-01-28] MEDS: TAMSULOSIN 0.4 MG CAP PO SCH ×2 (08:44→20:12)
[2023-01-28] MEDS: FERROUS SULFATE 325 MG TABEC PO SCH ×2 (08:45→17:37)
[2023-01-28] MEDS: CITALOPRAM 20 MG TAB PO SCH (08:45)
[2023-01-28] MEDS: DONEPEZIL 10 MG TAB PO SCH (08:46)
[2023-01-28] MEDS: VIT-B COMP/VIT-C/FOLIC ACID 1 TAB PO SCH (08:46)
[2023-01-28] MEDS: ASPIRIN 81 MG TAB.CHEW PO SCH (08:46)
[2023-01-28] MEDS: METOPROLOL SUCCINATE 50 MG TABER PO SCH (08:50)
--- NOTE | 2023-01-28 12:50 | NUR ---
MAKING ROUNDS PT EATING LUNCH, ASSISTED BY DOROTEO.
--- NOTE | 2023-01-28 13:26 | NUR ---
DIALYSIS NURSE AT BEDSIDE.
[2023-01-28 16:00] VITALS: BP 134/62
--- NOTE | 2023-01-28 16:20 | NUR ---
DIALYSIS COMPLETE, 2L OUT.
--- NOTE | 2023-01-28 19:23 | NUR ---
ENDORSED PT TO SERVER SERVICE ASSISTANT NURSE FOR CONTINUITY OF CARE. PT STABLE.
[2023-01-28] MEDS: ATORVASTATIN 20 MG TAB PO SCH (20:13)
[2023-01-28] MEDS: OLANZapine 2.5 MG TAB PO SCH (20:13)
[2023-01-29] VITALS: BP 120/68
--- NOTE | 2023-01-29 00:15 | NUR ---
VITAL SIGNS TAKEN AND STABLE. PT NOT IN ANY DISTRESS. BREATHING EVEN AND UNLABORED. WILL CONTINUE TO MONITOR THE PT.
[2023-01-29 06:08] LABS: BASOPHILS # (AUTO) 0.1 K/uL (0.00-0.22); BASOPHILS % (AUTO) 1.5 % (0.0-2.0); EOSINOPHILS # (AUTO) 0.2 K/uL (0-0.4); EOSINOPHILS % (AUTO) 4.8 % (0.0-4.0); HEMATOCRIT 28.1 % (36-52); HEMOGLOBIN 9.2 g/dL (12.0-18.0); LYMPHOCYTES # (AUTO) 0.9 K/uL (2.0-11.5); LYMPHOCYTES % (AUTO) 22.8 % (20.5-51.1); MEAN CORPUSCULAR HEMOGLOBIN 33 pg (27-31); MEAN CORPUSCULAR HGB CONC 33 g/dL (33-37); MEAN CORPUSCULAR VOLUME 100.9 fL (80-94); MONOCYTES # (AUTO) 0.5 K/uL (0.8-1.0); MONOCYTES % (AUTO) 12.5 % (1.7-9.3); NEUTROPHILS # (AUTO) 2.4 K/uL (1.8-7.7); NEUTROPHILS % (AUTO) 58.4 % (42.2-75.2); PLATELET COUNT (AUTO) 185 K/uL (140-450); RED BLOOD CELL COUNT(AUTO) 2.78 MIL/uL (4.20-6.10); RED CELL DISTRIBUTION WIDTH 14.7 % (11.6-13.7); WHITE BLOOD COUNT (AUTO) 4.1 K/uL (4.8-10.8)
[2023-01-29 06:27] LABS: ANION GAP 11.1 (8-16); CARBON DIOXIDE 31.1 mmol/L (21-32); CHLORIDE 106 mmol/L (98-107); CREATININE 3.9 mg/dL (0.6-1.3); GLUCOSE 86 mg/dL (74-106); POTASSIUM 5.2 mmol/L (3.5-5.1); SODIUM SERUM 143 mmol/L (136-145); UREA NITROGEN, BLOOD 33 mg/dL (7-18)
--- NOTE | 2023-01-29 07:20 | NUR ---
ENDORSED PT TO DAY SHIFT RN FOR CONTINUITY OF CARE. PT IS STABLE.
[2023-01-29 08:00] VITALS: BP 125/68
[2023-01-29] MEDS: FERROUS SULFATE 325 MG TABEC PO SCH (08:15)
[2023-01-29] MEDS: CITALOPRAM 20 MG TAB PO SCH (09:00)
[2023-01-29] MEDS: FINASTERIDE 5 MG TAB PO SCH (09:00)
[2023-01-29] MEDS: ASPIRIN 81 MG TAB.CHEW PO SCH (09:00)
[2023-01-29] MEDS: DONEPEZIL 10 MG TAB PO SCH (09:00)
[2023-01-29] MEDS: DOCUSATE SODIUM 250 MG GELCAP PO SCH (09:00)
[2023-01-29] MEDS: VIT-B COMP/VIT-C/FOLIC ACID 1 TAB PO SCH (09:00)
[2023-01-29] MEDS: TAMSULOSIN 0.4 MG CAP PO SCH (09:00)
[2023-01-29] MEDS: METOPROLOL SUCCINATE 50 MG TABER PO SCH (09:00)
[2023-01-29] MEDS ORDERED: AMOX-999 PO (12:59)
[2023-01-29 13:38] VITALS: BP 125/76
[2023-01-29 13:54] VITALS: BP 125/76
--- NOTE | 2023-01-29 14:16 | NUR ---
CALLED [facility] TO SET UP TRANSPORTATION, TRIAGE NURSE STATED SHE WILL CALL BACK WITH AN ETA FOR PICKUP.
--- NOTE | 2023-01-29 15:18 | NUR ---
ANNABEL FROM [facility] CALLED, STATING SHE WAS HAVING DIFFICULTY OBTAINING TRANSPORTATION FOR PT. PER ANNABEL, [facility] WILL PAY FOR TRANSPORTATION IF WE ARE ABLE TO SUPPLY IT. NOTIFIED COMMUNITY RELATIONS MANAGER ALEXUS.
== END 2023-01-29 16:01 | disposition hospice, inpatient (51) | DRG 70 ==
LOC: MED 12:55 → MTU 16:17
PROVIDERS: ADMIT Family Medicine; ATTEND Family Medicine
PROC: 5A1D70Z Performance of Urinary Filtration, Intermittent, Less than 6 Hours Per Day (ICD-10-PCS; principal; 2023-01-27)
DX: G93.41 Metabolic encephalopathy (principal); N18.6 End stage renal disease; N39.0 Urinary tract infection, site not specified; E87.20 Acidosis, unspecified; I12.0 Hypertensive chronic kidney disease with stage 5 chronic kidney disease or end stage renal disease; G40.909 Epilepsy, unspecified, not intractable, without status epilepticus; E03.9 Hypothyroidism, unspecified; E78.00 Pure hypercholesterolemia, unspecified; I25.10 Atherosclerotic heart disease of native coronary artery without angina pectoris; G20 Parkinson's disease; F02.80 Dementia in other diseases classified elsewhere, unspecified severity, without behavioral disturbance, psychotic disturbance, mood disturbance, and anxiety; K21.9 Gastro-esophageal reflux disease without esophagitis; D63.8 Anemia in other chronic diseases classified elsewhere; F41.9 Anxiety disorder, unspecified; F32.A Depression, unspecified; E11.22 Type 2 diabetes mellitus with diabetic chronic kidney disease; Z20.822 Contact with and (suspected) exposure to COVID-19; Z79.82 Long term (current) use of aspirin; Z79.899 Other long term (current) drug therapy
CPT/HCPCS: 36415; 70450; 71045; 80048; 80053; 81001; 82140; 82550; 83735; 84439; 84443; 84484; 85025; 87081; 87086; 96374; 97163-GP; 97530; 99285; G0480; G0482; J0696; J1644; J7060; Q0092